=== PATIENT | male | born 2000 | race Caucasian/White ===

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

== ENCOUNTER 2022-06-28 19:24 | Emergency (ER) | payer OTHER, SELFPAY ==
[2022-06-28 19:29] VITALS: BP 142/89; PULSE 92; RESP 20; TEMP 37.2; O2SAT 100
--- NOTE | 2022-06-28 19:39 | ED.URI ---
HPI - URI/Sore Throat General Chief Complaint: Upper Respiratory Infection Stated Complaint: headaches sore throat congestion Time Seen by Provider: 06/28/22 19:40 Source: patient and RN notes reviewed Mode of arrival: ambulatory Limitations: no limitations History of Present Illness HPI Narrative: 22, presenting for complaint of sinus pressure, congestion, postnasal drainage and cough with a sore throat for about 3 days. He denies shortness of breath, wheezing, nausea, vomiting, diarrhea, fevers or chills. He is taking Mucinex for symptoms. He denies sick contacts. MD elicited complaint: cough Related Data Home Medications Medication Instructions Recorded Confirmed duloxetine 60 mg capsule,delayed 60 mg PO DAILY 07/31/21 06/28/22 release lisinopril 20 mg tablet 20 mg PO DAILY 07/31/21 06/28/22 Allergies Allergy/AdvReac Type Severity Reaction Status Date / Time No Known Allergies Allergy Verified 07/31/21 20:25 Review of Systems Review of Systems: CONSTITUTIONAL: Denies malaise, chills, sweats, fever EYES: Denies visual changes, redness, or discharge ENT: Reports rhinorrhea, congestion, sinus pain, sore throat CARDIOVASCULAR: Denies chest pain, palpitations, edema RESPIRATORY: Reports cough, post nasal drainage. Denies dyspnea GASTROINTESTINAL: Denies abdominal pain, nausea, vomiting, diarrhea SKIN: Denies rash or itching MUSCULOSKELETAL: denies myalgia NEUROLOGIC: Denies headache PMFSH Past Medical History Medical History Asthma Social History Social History Substance use type: marijuana Gender identity (if verbalized by the patient): Male Exam Narrative: GENERAL: well-appearing EYES: conjunctivae clear ENT: Mucous membranes moist. TMs pearly mart with dull light reflex bilaterally; no tragal tenderness. Oropharynx erythematous, tonsillar swelling 2+ without lesions or exudate, no drooling, no hoarseness, no trismus, uvula midline. No tripod positioning, muffled voice, soft palate or pharyngeal wall bulging NECK: Supple. No lymphadenopathy CHEST: Clear to auscultation, breath sounds equal. HEART: Regular rate and rhythm. SKIN: Warm, dry, no rash. NEURO: Alert and oriented x3. Course Course Emergency Course: Patient is aware of diagnosis, understands and agrees to treatment plan. Anticipatory guidance given. Patient agrees to follow-up as directed and is aware of reasons to seek care at the emergency department. Portions of this record may have been created with voice recognition software Level of Care: Express Care Visit Vital Signs Vital signs: Vital Signs Temperature 98.9 F 06/28/22 19:29 Pulse Rate 92 06/28/22 19:29 Respiratory Rate 20 06/28/22 19:29 Blood Pressure 142/89 H 06/28/22 19:29 Pulse Oximetry 100 06/28/22 19:29 Oxygen Delivery Room Air 06/28/22 19:29 Temperature 98.9 F 06/28/22 19:29 Pulse Rate 92 06/28/22 19:29 Respiratory Rate 20 06/28/22 19:29 Blood Pressure 142/89 H 06/28/22 19:29 Pulse Oximetry 100 06/28/22 19:29 Oxygen Delivery Room Air 06/28/22 19:29 reviewed MDM - URI/Sore Throat MDM Narrative Medical decision making narrative: Strep neg result reviewed with pt. Advised supportive measures and signs/symptoms to go to the ER. Pt is appropriate for outpt treatment and f/u. Differential Diagnosis Differential diagnosis: Likely upper respiratory infection, sinusitis and viral infection Discharge Plan Discharge Clinical Impression: Upper respiratory infection Patient Disposition: Home, Self-Care Condition: Stable Instructions: Upper Respiratory Infection (ED) Additional Instructions: Rapid strep swab was negative today You will be notified in a few days if the culture comes back positive for strep, and appropriate antibiotics will be called in at that time. if symptoms are due t
== END 2022-06-28 19:50 | disposition home or self-care (01) ==
PROVIDERS: Emergency Provider Nurse Practitioner Family; PCP Physician Assistant
DX: J06.9 Acute upper respiratory infection, unspecified (principal); J45.909 Unspecified asthma, uncomplicated
CPT/HCPCS: 87081; 87880; 99213; G0463

== ENCOUNTER 2023-06-27 15:34 | Emergency (ER) | payer OTHER, SELFPAY ==
[2023-06-27 15:39] VITALS: BP 154/94; PULSE 77; RESP 16; TEMP 37.1; O2SAT 98
--- NOTE | 2023-06-27 15:42 | ED.URI ---
HPI - URI/Sore Throat General Chief Complaint: Upper Respiratory Infection Stated Complaint: Cough, Throat Irritation, Body Aches Source: patient and RN notes reviewed History of Present Illness HPI Narrative: 23 yo M presents to urgent care with complaints of cough, congestion, SOB with exertion, body aches, and dizziness intermittently. Pt reports ear ringing, sore throat, and upper chest tightness. Pt states his symptoms started on Friday. Pt was seen in the ER on Friday where he had a CXR obtained that was negative. Pt states he was given a Medrol dose pack that he is still taking and he is using his nebulizer and inhaler at home with no improvement. Denies any N/V/D or ear pain. Related Data Home Medications Medication Instructions Recorded Confirmed albuterol sulfate 2.5 mg/3 mL See Rx Instructions .Route 06/27/23 06/27/23 (0.083 %) solution for nebulization .COMPLEX PRN sob albuterol sulfate 90 mcg/actuation See Rx Instructions .Route 06/27/23 06/27/23 aerosol inhaler .COMPLEX PRN sob escitalopram oxalate 20 mg tablet 20 mg PO DAILY 06/27/23 06/27/23 methylprednisolone 4 mg tablets in 4 mg PO 06/27/23 a dose pack Allergies Allergy/AdvReac Type Severity Reaction Status Date / Time No Known Allergies Allergy Verified 07/31/21 20:25 Review of Systems Review of Systems: Pertinent positives and pertinent negatives per HPI. [facility] Past Medical History Medical History Asthma Social History Social History Substance use type: marijuana Gender identity (if verbalized by the patient): Male Comments At the time of my signature, I reviewed and agree with the nursing past medical, surgical, social, and family history. There is no relevant family history pertinent to the patient complaint. Exam Narrative: GENERAL: This is a well-nourished, well-developed patient, in no apparent distress. HEAD: normocephalic, atraumatic. EYES: Sclera clear/white. Vision is grossly intact. EARS: External ears normal, auditory canals clear and without drainage, TMs normal without perforation. Hearing grossly intact. NOSE: External nose normal with no obvious nasal discharge, nares without redness, no rhinorrhea. THROAT: Mucous membranes moist, posterior pharynx clear. NECK: Neck supple, non-tender without lymphadenopathy, masses or thyromegaly. CARDIOVASCULAR: Regular rate and rhythm without murmurs, gallops, or rubs. RESPIRATORY: Clear to auscultation. Breath sounds equal bilaterally. No wheezes, rales, or rhonchi. GASTROINTESTINAL: Abdomen soft, non-tender, nondistended. Bowel sounds are active. No hepato-splenomegaly, or palpable masses. No guarding. SKIN: warm, intact with no suspicious lesions or rash, good texture and turgor. NEURO: awake, alert, and oriented to person, place and time. There were no obvious focal neurologic abnormalities. EXTREMITIES: No clubbing, cyanosis, or edema. No joint tenderness, effusion, or edema noted. BACK: Nontender without deformity or crepitus. No flank tenderness. Course Course Level of Care: Express Care Visit Vital Signs Vital signs: reviewed MDM - URI/Sore Throat MDM Narrative Medical decision making narrative: Viral illness may last between 7-12days; antibiotic is NOT recommended at this time. Recommend antihistamine such as Benadryl at night time and Claritin/Zyrtec/Octavia during the day. Increase your Vitamin C intake. Steam from hot showers help with congestion. Use inhaler as needed for cough, wheezing, shortness of breath or chest tightness. Also, recommend symptomatic treatment includes: rest, fluids, increase humidity of the air at home with a humidifier in the bedroom. Recommend Acetaminophen or nonsteroidal anti-inflammatory agents(NSAIDs) as directed in the bottle to reduce fever and/pain/headache. Avoid smoking/second-hand smoke. Limit visits to
== END 2023-06-27 16:10 | disposition home or self-care (01) ==
PROVIDERS: Emergency Provider Nurse Practitioner Family; PCP Physician Assistant
DX: J40 Bronchitis, not specified as acute or chronic (principal); J06.9 Acute upper respiratory infection, unspecified; J45.909 Unspecified asthma, uncomplicated; F12.90 Cannabis use, unspecified, uncomplicated
CPT/HCPCS: 87081; 87880; 99213; G0463

== ENCOUNTER 2023-07-01 16:28 | Emergency (ER) | payer OTHER, SELFPAY ==
--- NOTE | 2023-07-01 16:30 | ED.URI ---
HPI - URI/Sore Throat General Chief Complaint: Upper Respiratory Infection Stated Complaint: sob and lightheaded Source: patient and RN notes reviewed Mode of arrival: ambulatory Limitations: no limitations History of Present Illness HPI Narrative: Patient is a 23-year-old male who presents to the [facility] with complaints bilateral ear pain and head congestion. Patient states that he developed a cough and sore throat last Friday. He was diagnosed with bronchitis S started on a Medrol Dosepak and albuterol. Patient states that he was seen at the urgent care on 06/28 and prescribed Tessalon Flonase. Patient states that his cough is improving. He no longer has a sore throat. Patient states that he continues to have bilateral ear pain and sinus pain and pressure. Patient reports history of asthma. States that he has been taking his albuterol inhaler daily. He has no auditory wheezes at this time. His respirations are unlabored. Related Data Home Medications Medication Instructions Recorded Confirmed albuterol sulfate 2.5 mg/3 mL See Rx Instructions .Route 06/27/23 06/27/23 (0.083 %) solution for nebulization .COMPLEX PRN sob albuterol sulfate 90 mcg/actuation See Rx Instructions .Route 06/27/23 06/27/23 aerosol inhaler .COMPLEX PRN sob escitalopram oxalate 20 mg tablet 20 mg PO DAILY 06/27/23 06/27/23 methylprednisolone 4 mg tablets in 4 mg PO 06/27/23 a dose pack lisinopril 40 mg tablet mg 07/01/23 Allergies Allergy/AdvReac Type Severity Reaction Status Date / Time No Known Allergies Allergy Verified 07/31/21 20:25 Review of Systems Review of Systems: CONSTITUTIONAL: Denies fever, chills, or sweats. EYES: Denies visual changes, redness, or discharge. ENT: Reports otalgia but denies sore throat. Reports sinus pain and pressure. CARDIOVASCULAR: Denies chest pain, palpitations, or edema. RESPIRATORY: Reports cough but denies dyspnea. GASTROINTESTINAL: Denies abdominal pain, nausea, vomiting, or diarrhea. GENITOURINARY: Denies dysuria or hematuria. SKIN: Denies rash or itching. MUSCULOSKELETAL: Denies back pain, joint pain, or myalgia. NEUROLOGIC: Denies headache, numbness, or weakness. Pertinent positives per HPI. [facility] Past Medical History Medical History Asthma Social History Social History Substance use type: marijuana Gender identity (if verbalized by the patient): Male Comments At the time of my signature, I reviewed and agree with the nursing past medical, surgical, social, and family history. There is no relevant family history pertinent to the patient complaint. Exam Narrative: GENERAL: This is a well-nourished, well-developed patient, in no apparent distress. HEAD: normocephalic, atraumatic. EYES: Sclera clear/white. Vision is grossly intact. EARS: External ears normal, auditory canals clear and without drainage, bilateral TMs erythematous and bulging. Hearing grossly intact. NOSE: External nose normal. Moderate congestion. Sinus tenderness. THROAT: Mucous membranes moist, posterior pharynx clear. NECK: Neck supple, non-tender without lymphadenopathy, masses or thyromegaly. CARDIOVASCULAR: Regular rate and rhythm without murmurs, gallops, or rubs. RESPIRATORY: Clear to auscultation. Breath sounds equal bilaterally. No wheezes, rales, or rhonchi. GASTROINTESTINAL: Abdomen soft, non-tender, nondistended. Bowel sounds are active. No hepato-splenomegaly, or palpable masses. No guarding. SKIN: warm, intact with no suspicious lesions or rash, good texture and turgor. NEURO: awake, alert, and oriented to person, place and time. There were no obvious focal neurologic abnormalities. Course Course Level of Care: Express Care Visit Vital Signs Vital signs: Vital Signs Temperature 97.4 F L 07/01/23 16:32 Pulse Rate 72 07/01/23 16:32 Respiratory Rate 20 07/01
[2023-07-01 16:32] VITALS: BP 149/98; PULSE 72; RESP 20; TEMP 36.3; O2SAT 97
== END 2023-07-01 16:50 | disposition home or self-care (01) ==
PROVIDERS: Emergency Provider Nurse Practitioner; PCP Physician Assistant
DX: H66.93 Otitis media, unspecified, bilateral (principal); J01.90 Acute sinusitis, unspecified; J45.909 Unspecified asthma, uncomplicated; F12.90 Cannabis use, unspecified, uncomplicated
CPT/HCPCS: 99213; G0463

== ENCOUNTER 2023-08-07 11:20 | Emergency (ER) | payer OTHER, SELFPAY ==
[2023-08-07 11:27] VITALS: BP 164/92; PULSE 82; RESP 18; TEMP 38.6; O2SAT 98
--- NOTE | 2023-08-07 11:36 | ED.URI ---
HPI - URI/Sore Throat General Chief Complaint: Upper Respiratory Infection Stated Complaint: cough/fatigue/throat Time Seen by Provider: 08/07/23 11:37 History of Present Illness HPI Narrative: 23 y/o male presented for c/o sore throat, nausea, headache. Onset this morning. States while at work this morning he felt light headed and has some body aches. Endorses exposure to covid and flu. Denies vomiting, sob, wheezing, cp or lethargy. Related Data Home Medications Medication Instructions Recorded Confirmed escitalopram oxalate 20 mg tablet 20 mg PO DAILY 08/07/23 08/07/23 lisinopril 40 mg tablet 40 mg PO DAILY 08/07/23 08/07/23 Allergies Allergy/AdvReac Type Severity Reaction Status Date / Time No Known Allergies Allergy Verified 07/31/21 20:25 Review of Systems Review of Systems: CONSTITUTIONAL: reports body aches, fever, chills, or sweats. EYES: Denies visual changes, redness, or discharge. ENT: Reports sore throat Denies rhinorrhea, congestion, or otalgia. CARDIOVASCULAR: Denies chest pain, palpitations, or edema. RESPIRATORY: Denies dyspnea. GASTROINTESTINAL: Reports nausea Denies abdominal pain, vomiting, or diarrhea. SKIN: Denies rash, itching, or wounds. MUSCULOSKELETAL: Denies back pain, joint pain NEUROLOGIC: Reports headache PMFSH Past Medical History Medical History Asthma Social History Social History Substance use type: marijuana Gender identity (if verbalized by the patient): Male Exam Narrative: GENERAL: Mildly vIll-appearing, no acute distress. EYES: conjunctivae clear ENT: Mucous membranes moist. TM pearly mart with normal light reflex bilaterally; no tragal tenderness. Oropharynx erythematous Tonsils enlarged and without exudate. No drooling, no hoarseness, no trismus, uvula midline. No tripod positioning, hot potato voice, or soft palate swelling. NECK: Supple. No lymphadenopathy CHEST: Clear to auscultation, breath sounds equal. No respiratory distress, speaks in full sentences. HEART: Regular rate and rhythm. No murmur heard. SKIN: Warm, dry, no rash. NEURO: Alert and oriented x3. Course Course Emergency Course: Patient is aware of diagnosis, understands and agrees to treatment plan. Anticipatory guidance given. Patient agrees to follow-up as directed and is aware of reasons to seek care at the emergency department. Portions of this record may have been created with voice recognition software Level of Care: Express Care Visit Vital Signs Vital signs: Vital Signs Temperature 101.4 F H 08/07/23 11:27 Pulse Rate 82 08/07/23 11:27 Respiratory Rate 18 08/07/23 11:27 Blood Pressure 164/92 H 08/07/23 11:27 Pulse Oximetry 98 08/07/23 11:27 Oxygen Delivery Room Air 08/07/23 11:27 Temperature 101.4 F H 08/07/23 11:27 Pulse Rate 82 08/07/23 11:27 Respiratory Rate 18 08/07/23 11:27 Blood Pressure 164/92 H 08/07/23 11:27 Pulse Oximetry 98 08/07/23 11:27 Oxygen Delivery Room Air 08/07/23 11:27 MDM - URI/Sore Throat MDM Narrative Medical decision making narrative: negative flu, COVID, strep. Results reviewed with patient. Advised to retest for COVID at home within 24 hours. Discussed physical exam findings. Advised supportive measures and signs/symptoms to go to the ER. Pt is appropriate for outpt treatment and f/u. Differential Diagnosis Differential diagnosis: Likely upper respiratory infection, sinusitis, viral infection, bronchitis, influenza and pharyngitis Discharge Plan Discharge Clinical Impression: Upper respiratory infection Patient Disposition: Home, Self-Care Condition: Stable Instructions: Antibiotic Form, Strep Throat (ED), COVID-19 (Coronavirus Disease 2019) (ED) Additional Instructions: Your rapid covid test was negative today. It may be too early to detect the virus, the
== END 2023-08-07 11:59 | disposition home or self-care (01) ==
PROVIDERS: Emergency Provider Nurse Practitioner Family; PCP Physician Assistant
DX: J06.9 Acute upper respiratory infection, unspecified (principal); Z79.899 Other long term (current) drug therapy; Z20.822 Contact with and (suspected) exposure to COVID-19
CPT/HCPCS: 87081; 87426; 87804; 87880; 99213; C9803; G0463

== ENCOUNTER 2024-08-27 15:07 | Emergency (ER) | payer SELFPAY ==
[2024-08-27 15:14] VITALS: BP 155/93; PULSE 90; RESP 16; TEMP 36.9; O2SAT 99
--- NOTE | 2024-08-27 15:28 | ED.URI ---
HPI - URI/Sore Throat General Chief Complaint: Upper Respiratory Infection Stated Complaint: Sore Throat/Shortness of Breath/Congestion Time Seen by Provider: 08/27/24 15:20 Source: patient and RN notes reviewed Mode of arrival: ambulatory Limitations: no limitations History of Present Illness HPI Narrative: Patient presents today complaining of sore throat, congestion, rhinorrhea, shortness of breath. Symptoms began yesterday. Currently rates his pain 6/10, which increases with swallowing. He has tried Robitussin and Chloraseptic spray without relief. Works at a local hospital. Related Data Home Medications ?Medication ?Instructions ?Recorded ?Confirmed ?Last Taken ?Type escitalopram oxalate 20 mg tablet 20 mg PO DAILY 08/07/23 08/27/24 Unknown History lisinopril 40 mg tablet 40 mg PO DAILY 08/07/23 08/27/24 Unknown History Allergies Allergy/AdvReac Type Severity Reaction Status Date / Time No Known Allergies Allergy Verified 07/31/21 20:25 Review of Systems Review of Systems: CONSTITUTIONAL: Denies body aches, fever, chills, or sweats. EYES: Denies visual changes, redness, or discharge. ENT: Denies otalgia.+ rhinorrhea, congestion, sore throat CARDIOVASCULAR: Denies chest pain, palpitations, or edema. RESPIRATORY: Denies cough.+ shortness of GASTROINTESTINAL: Denies abdominal pain, nausea, vomiting, or diarrhea. GENITOURINARY: Denies dysuria or hematuria. SKIN: Denies rash, itching, or wounds. MUSCULOSKELETAL: Denies back pain, joint pain, or myalgia. NEUROLOGIC: Denies headache, numbness, tingling, or weakness. PSYCH: Denies depression or anxiety. [facility] Past Medical History Medical History Asthma Social History Social History Substance use type: marijuana Gender identity (if verbalized by the patient): Male Comments At time of signature, I have reviewed and agree with nursing past medical, surgical, social and family history unless otherwise noted. Please see nursing chart for further information. There is no relevant family history pertinent to the presenting complaint Exam Narrative: GENERAL: Well-appearing, well-nourished, and in no acute distress. HEAD: Normocephalic, atraumatic. EYES: EOMI. No redness or drainage. Conjunctivae normal. ENT: Mucous membranes pink and moist. Nares mildly. No rhinorrhea. TMs normal bilaterally. Throat erythematous. Tonsils 3 to 4+ without exudate. Voice normal. Uvula midline. NECK: Normal AROM. Supple. No lymphadenopathy. CHEST: No respiratory distress. Clear to auscultation. HEART: Regular rate and rhythm. No murmur appreciated. EXTREMITIES: Normal range of motion. No edema. SKIN: Warm, dry, no rash. Capillary refill normal. Normal skin turgor. NEURO: No focal deficits. Alert and oriented x3. Gait steady. PSYCH: Normal affect. No signs of depression or anxiety. Course Course Level of Care: Express Care Visit Vital Signs Vital signs: Vital Signs Temperature 98.4 F 08/27/24 15:14 Pulse Rate 90 08/27/24 15:14 Respiratory Rate 16 08/27/24 15:14 Blood Pressure 155/93 H 08/27/24 15:14 Pulse Oximetry 99 08/27/24 15:14 Oxygen Delivery Room Air 08/27/24 15:14 Temperature 98.4 F 08/27/24 15:14 Pulse Rate 90 08/27/24 15:14 Respiratory Rate 16 08/27/24 15:14 Blood Pressure 155/93 H 08/27/24 15:14 Pulse Oximetry 99 08/27/24 15:14 Oxygen Delivery Room Air 08/27/24 15:14 Reviewed MDM - URI/Sore Throat MDM Narrative Medical decision making narrative: Testing negative. Strep culture positive. Symptoms likely viral in etiology. Discussed [id number] medication use and duration of illness. No prescription medications indicated at this time. Anticipatory guidance given. Differential Diagnosis Differential diagnosis: Likely upper respiratory infection, viral infection, pharyngitis and other (Strep throat) Lab Data Attestation: I reviewed the patient's lab results. Labs: Lab Results 08/27/24 Range/Units 16:02 POC Influenza A Ag Negative (Negative) POC Influenza B Ag Negative (Negative) POC SARS CoV-2 Ag Negative (Negative) POC Grp A Strep Screen Negative (Negative) Critical Care Time Critical Care Time Critical Care Time: No Discharge Plan Discharge Clinical Impression: Upper respiratory infection Qualifiers: URI type: unspecified URI Qualified Code(s): J06.9 - Acute upper respiratory infection, unspecified Patient Disposition: Home, Self-Care Condition: Stable Instructions: Upper Respiratory Infection (DC) Additional Instructions: Your influenza, COVID-19, and rapid strep swab was negative today at [facility]. You will be notified in a few days if the culture comes back positive for strep, and appropriate antibiotics will be called in for you at that time. Your symptoms are likely due to a viral illness, which is not treated with antibiotics. Viral symptoms can be present for up to 7-10 days. Take Tylenol or ibuprofen for fever or pain. Rest and stay hydrated. Follow up with your PCP in 7 days if symptoms are not improving. Go to the ER immediately if you have any difficulty breathing or swallowing. Your blood pressure was elevated above 120/80 today at Urgent Care. This puts you above the threshold for follow up. Please schedule a followup visit with your personal physician as soon as possible, for further evaluation and treatment. Even blood pressure exceeding 120/80 may indicate pre-hypertension. Patient Language: Welsh Prescriptions: No Action lisinopril 40 mg tablet 40 mg PO DAILY escitalopram oxalate 20 mg tablet 20 mg PO DAILY Follow-up/Referrals: Dinesh,JADEN Ellsworth [Primary Care Provider] - Time of Disposition: 16:14
[2024-08-27 16:04] LABS: EDCOVIDSCREEN Negative (Negative); EDINFLUASCREEN Negative (Negative); EDINFLUBSCREEN Negative (Negative); EDSTREPNEGPOS1 Negative (Negative)
== END 2024-08-27 16:20 | disposition home or self-care (01) ==
PROVIDERS: Emergency Provider Nurse Practitioner; PCP Physician Assistant
DX: J06.9 Acute upper respiratory infection, unspecified (principal); Z79.899 Other long term (current) drug therapy; Z20.822 Contact with and (suspected) exposure to COVID-19
CPT/HCPCS: 87081; 87426; 87804; 87880; 99213; G0463

== ENCOUNTER 2025-04-17 12:29 | Emergency (ER) | payer MEDICAID, SELFPAY ==
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
[2025-04-17 12:35] VITALS: BP 143/91; PULSE 104; RESP 16; TEMP 36.2; O2SAT 99
--- NOTE | 2025-04-17 12:51 | ED_ITS ---
HPI - Skin/Abscess/Foreign Bdy General Chief complaint: Skin/Abscess/Foreign Body Stated complaint: Infected finger Time Seen by Provider: 04/17/25 12:50 Source: patient Mode of arrival: ambulatory Limitations: no limitations History of Present Illness HPI narrative: 24 y/o male presented for c/o right 4th finger pain, redness, and swelling for about 3 days. Says last week he trimmed a hang nail. Denies any drainage at this time. Related Data Allergies Allergy/AdvReac Type Severity Reaction Status Date / Time generic lexapro Allergy Intermediate Anaphylaxis Uncoded 04/17/25 12:43 Review of Systems Review of Systems: CONSTITUTIONAL: Denies body aches, fever, chills, or sweats. CARDIOVASCULAR: Denies chest pain, palpitations, or edema. RESPIRATORY: Denies cough or dyspnea. GASTROINTESTINAL: Denies abdominal pain, nausea, vomiting, or diarrhea. SKIN: reports right 4th finger swelling and pain MUSCULOSKELETAL: Denies back pain, joint pain, or myalgia. NEUROLOGIC: Denies numbness, tingling, or weakness. [facility] Past Medical History Medical History (Updated 04/17/25 @ 13:05 by La Nena Duong APRN) Head trauma Asthma Social History Social History Substance use type: marijuana Gender identity (if verbalized by the patient): Male Comments At time of signature, I have reviewed and agree with nursing past medical, surgical, social and family history unless otherwise noted. Please see nursing chart for further information. There is no relevant family history pertinent to the presenting complaint Exam Narrative: GENERAL: Well-appearing HEAD: Normocephalic, atraumatic. EYES: conjunctivae clear, and EOMI. ENT: Mucous membranes moist. Oropharynx without edema, erythema or lesions. NECK: Supple. No lymphadenopathy CHEST: Clear to auscultation. HEART: Regular rate and rhythm. SKIN: Warm, dry. right 4th digit paronychia, mild area of green subcutaneous tissue, tender, surrounding erythema. NEURO: Alert and oriented x3. Course Course Emergency Course: Patient is aware of diagnosis, understands and agrees to treatment plan. Anticipatory guidance given. Patient agrees to follow-up as directed and is aware of reasons to seek care at the emergency department. Portions of this record may have been created with voice recognition software Level of Care: Express Care Visit Vital Signs Vital signs: Vital Signs Temperature 97.1 F L 04/17/25 12:35 Pulse Rate 104 H 04/17/25 12:35 Respiratory Rate 16 04/17/25 12:35 Blood Pressure 143/91 H 04/17/25 12:35 Pulse Oximetry 99 04/17/25 12:35 Oxygen Delivery Room Air 04/17/25 12:35 Temperature 97.1 F L 04/17/25 12:35 Pulse Rate 104 H 04/17/25 12:35 Respiratory Rate 16 04/17/25 12:35 Blood Pressure 143/91 H 04/17/25 12:35 Pulse Oximetry 99 04/17/25 12:35 Oxygen Delivery Room Air 04/17/25 12:35 Reviewed Procedures Abscess I/D [id number]: Technique: needle aspiration I&D Results: Pus and Blood Abcess I&D Additional Comments: Finger soaked. The procedure and its alternatives were reviewed with patient. Risks were reviewed with patient including infection and damage to nearby structures. Patient provided verbal informed consent. The patient was positioned appropriately. Single straight puncture made to center of most fluctuant area with #[id number]. Moderate amount of thick purulent discharge expelled with manual pressure. MAKAYLA and bandaid applied. MDM - Skin/Abscess/Foreign Bdy MDM Narrative Medical decision making narrative: Discussed physical exam findings c/w paronychia; pt tolerated I&D. Advised supportive measures and signs/symptoms to go to the ER. Pt is appropriate for outpt treatment and f/u. Differential Diagnosis Differential diagnosis: Likely abscess of skin or subcutaneous tissue, viral exanthem, dermatophytosis, urticaria, herpes zoster, cellulitis, eczema, insect bites, impetigo and contact dermatitis Discharge Plan Discharge Clinical Impression: Paronychia of finger Patient Disposition: Home Condition: Stable Instructions: Antibiotic Form, Paronychia (ED) Additional Instructions: Soak your nail in warm soapy water or epson salt soak 4 times each day. This can help with any additional drainage that needs to come out. Raise your hand above the level of your heart as often as you can. This will help decrease swelling and pain. Apply lotion after you wash your hands to prevent your skin from becoming too dry. Tylenol as needed for pain Take antibiotic as directed Please follow-up with your primary care doctor in the next 3 days. go to the ER for any worsening symptoms or concerns Patient Language: Hebrew Prescriptions: New cephalexin 500 mg capsule 500 mg PO Q12H 5 Days Qty: 10 0RF Follow-up/Referrals: Dinesh,JADEN Ellsworth [Primary Care Provider] Time of Disposition: 13:37
== END 2025-04-17 13:42 | disposition home or self-care (01) ==
PROVIDERS: Emergency Provider Nurse Practitioner Family; PCP Physician Assistant
DX: L03.011 Cellulitis of right finger (principal); J45.909 Unspecified asthma, uncomplicated; F12.90 Cannabis use, unspecified, uncomplicated
CPT/HCPCS: 10060; 99213; G0463